=== PATIENT | male | born 1995 | race Caucasian/White ===

== ENCOUNTER 2016-08-28 03:49 | Emergency (ER) | payer BC ==
[2016-08-28] MEDS ORDERED: Ketorolac INJ* 30 MG/ML 1 ML VIAL IV ONE (04:07)
[2016-08-28] MEDS ORDERED: NS 0.9% 1000 ML* 1,000 ML IV ONE (04:07)
[2016-08-28] MEDS ORDERED: Ondansetron INJ* 2 MG/ML VIAL IV ONE (04:07)
[2016-08-28 04:24] LABS: Hematocrit 46 % (42-52); Hemoglobin 16.2 g/dl (14.0-18.0); Mean Corpuscular HGB Conc 35 g/dl (31-36); Mean Corpuscular Hemoglobin 32 pg (27-31); Mean Corpuscular Volume 89 fL (80-94); Mean Platelet Volume 8 um3 (7.4-10.4); Red Blood Count 5.14 10^6/ul (4.0-5.4); Red Cell Distribution Width 13 % (10.5-15)
[2016-08-28 04:35] LABS: Albumin 4.7 g/dL (3.2-5.2); C Reactive Protein 2.1 mg/L (< 5.00); Calcium 9.8 mg/dL (8.6-10.3); EGFR African American 99.4 (>60); EGFR Non-African American 77.3 (>60); Total Bilirubin 0.6 mg/dL (0.2-1.0); Total Protein 7.7 g/dL (6.4-8.9)
[2016-08-28 04:43] LABS: Potassium 3.4 mmol/L (3.5-5.0)
[2016-08-28 04:47] LABS: Urine Bacteria Absent (Absent); Urine Bilirubin Negative (Negative); Urine Glucose Negative (Negative); Urine Nitrite Negative (Negative)
[2016-08-28] MEDS ORDERED: oxyCODONE/Acetamin 5/325 MG* TAB PO ONE ×2 (05:12→05:43)
--- NOTE | 2016-08-28 05:17 | ED ---
Leonardo Talley Billy, scribed for Kofi Gifford MD on 08/28/16 at 0408 . Abdominal Pain/Male - HPI Summary HPI Summary: Patient is a 21 year-old male coming to [facility] presenting with suprapubic abdominal pain for the last several days, but suddenly worse since several hours ago. He states he has had pressure in the region for several days, and the pain has not moved. Pain severity 10/10. He reports urinary frequency and urgency, N/V/D. Denies any fever or hematuria. Denies any similar symptoms in the past. Denies history of kidney stones. - History of Current Complaint Chief Complaint: EDAbdPain Stated Complaint: FLANK PAIN Time Seen by Provider: 08/28/16 04:00 Hx Obtained From: Patient Onset/Duration: Gradual Onset, Lasting Days, Still Present, Worse Since - several hours Timing: Constant Severity Initially: Moderate Severity Currently: Moderate Pain Intensity: 10 Pain Scale Used: 0-10 Numeric Location: Suprapubic Radiates: No Aggravating Factor(s): Nothing Alleviating Factor(s): Nothing Associated Signs And Symptoms: Positive: Urinary Symptoms, Nausea, Vomiting, Diarrhea. Negative: Fever - Allergies/Home Medications Allergies/Adverse Reactions: Allergies Allergy/AdvReac Type Severity Reaction Status Date / Time No Known Allergies Allergy Verified 08/28/16 04:25 PMH/Surg Hx/FS Hx/Imm Hx Endocrine/Hematology History: Denies: Hx Diabetes Cardiovascular History: Denies: Hx Hypertension Infectious Disease History: No Infectious Disease History: Denies: Traveled Outside the [place] in Last 30 Days - Family History Family History: Father with frequent kidney stones. - Social History Alcohol Use: None Hx Substance Use: No Substance Use Type: Reports: None Hx Tobacco Use: No Smoking Status (MU): Never Smoked Tobacco Review of Systems Negative: Fever Positive: Abdominal Pain - suprapubic, Vomiting, Diarrhea, Nausea Positive: frequency, urgency. Negative: hematuria All Other Systems Reviewed And Are Negative: Yes Physical Exam Triage Information Reviewed: Yes Vital Signs On Initial Exam: Initial Vitals Temp Pulse Resp BP Pulse Ox 98.3 F 89 19 140/80 100 08/28/16 04:03 08/28/16 04:03 08/28/16 04:03 08/28/16 04:03 08/28/16 04:03 Vital Signs Reviewed: Yes Appearance: Positive: Well-Appearing, Pain Distress - moderate discomfort Skin: Positive: Warm Head/Face: Positive: Normal Head/Face Inspection Eyes: Positive: MINDY ENT: Positive: Hearing grossly normal Neck: Positive: Supple Respiratory/Lung Sounds: Positive: Clear to Auscultation, Breath Sounds Present Cardiovascular: Positive: RRR Abdomen Description: Positive: Nontender, No Organomegaly, Soft. Negative: CVA Tenderness (R), CVA Tenderness (L) Bowel Sounds: Positive: Present Musculoskeletal: Positive: Strength/ROM Intact Neurological: Positive: Sensory/Motor Intact, Alert, Oriented to Person Place, Time Psychiatric: Positive: Affect/Mood Appropriate Diagnostics - Vital Signs Vital Signs Temp Pulse Resp BP Pulse Ox 08/28/16 04:03 98.3 F 89 19 140/80 100 - Laboratory Lab Results: Lab Results 08/28/16 08/28/16 08/28/16 Range/Units 04:00 04:00 04:26 WBC 10.0 (3.5-10.8) 10^3/ul RBC 5.14 (4.0-5.4) 10^6/ul Hgb 16.2 (14.0-18.0) g/dl Hct 46 (42-52) % MCV 89 (80-94) fL MCH 32 H (27-31) pg MCHC 35 (31-36) g/dl RDW 13 (10.5-15) % Plt Count 274 (150-450) 10^3/ul MPV 8 (7.4-10.4) um3 Neut % (Auto) 52.2 (38-83) % Lymph % (Auto) 34.5 (25-47) % [place] % (Auto) 10.6 H (1-9) % Eos % (Auto) 2.0 (0-6) % Baso % (Auto) 0.7 (0-2) % Absolute Neuts (auto) 5.2 (1.5-7.7) 10^3/ul Absolute Lymphs (auto) 3.4 (1.0-4.8) 10^3/ul Absolute Monos (auto) 1.1 H (0-0.8) 10^3/ul Absolute Eos (auto) 0.2 (0-0.6) 10^3/ul Absolute Basos (auto) 0.1 (0-0.2) 10^3/ul Absolute Nucleated RBC 0.01 10^3/ul Nucleated RBC % 0.1 Sodium 134 (133-145) mmol/L Potassium 3.4 L (3.5-5.0) mmol/L Chloride 99 L (101-111) mmol/L Carbon Dioxide 22 (22-32) mmol/L Anion Gap 13 H (2-11) mmol/L BUN 14 (6-24) mg/dL Creatinine 1.17 (0.67-1.17) mg/dL Est GFR ( Amer) 99.4 (>60) Est GFR (Non-Af Amer) 77.3 (>60) BUN/Creatinine Ratio 12.0 (8-20) Glucose 98 (70-100) mg/dL Calcium 9.8 (8.6-10.3) mg/dL Total Bilirubin 0.60 (0.2-1.0) mg/dL AST 21 (13-39) U/L ALT 15 (7-52) U/L Alkaline Phosphatase 46 (34-104) U/L C-Reactive Protein 2.10 (< 5.00) mg/L Total Protein 7.7 (6.4-8.9) g/dL Albumin 4.7 (3.2-5.2) g/dL Globulin 3.0 (2-4) g/dL Albumin/Globulin Ratio 1.6 (1-3) Lipase 14 (11.0-82.0) U/L Urine Color Yellow Urine Appearance Cloudy Urine pH 6.0 (5-9) Ur Specific [place] 1.019 (1.010-1.030) Urine Protein Negative (Negative) Urine Ketones Negative (Negative) Urine Blood 3+ H (Negative) Urine Nitrate Negative (Negative) Urine Bilirubin Negative (Negative) Urine Urobilinogen Negative (Negative) Ur Leukocyte Esterase Negative (Negative) Urine WBC (Auto) Trace(0-5/hpf) (Absent) Urine RBC (Auto) 3+(>10/hpf) H (Absent) Ur Squamous Epith Cells Present H (Absent) Urine Bacteria Absent (Absent) Urine Glucose Negative (Negative) Result Diagrams: 08/28/16 04:00 08/28/16 04:00 Lab Statement: Any lab studies that have been ordered have been reviewed, and results considered in the medical decision making process. - CT abd/pel w CT Interpretation Completed By: Radiologist - Obstructing calculus in the distal right ureter. Re-Evaluation - Re-Evaluation First Eval Re-Evaluation Time: 05:09 Change: Improved Abdominal Pain Fem Course/Dx - Diagnoses Provider Diagnoses: Renal colic Discharge - Discharge Plan Condition: Stable Disposition: HOME Prescriptions: Tamsulosin CAP* [Flomax CAP*] 0.4 mg PO DAILY #7 cap Patient Education Materials: Renal Colic (ED) Referrals: [facility] [Outside] Renaldo Núñez MD [Medical Doctor] - Additional Instructions: FOLLOW UP WITH UROLOGY. The documentation as recorded by the Leonardo sequeira Billy accurately reflects the service I personally performed and the decisions made by me, Kofi Gifford MD.
[2016-08-28 05:24] VITALS: BP 124/76
[2016-08-28] MEDS ORDERED: Ondansetron ODT TAB* 4 MG ONE (05:30)
[2016-08-28] MEDS ORDERED: Ondansetron ODT TAB* 4 MG PO ONE (05:35)
--- NOTE | 2016-08-28 10:28 | RAD ---
CLINICAL HISTORY: 2 days of right lower quadrant pain COMPARISON: None TECHNIQUE: Noncontrast CT examination of the abdomen and pelvis from the lung bases through the initial tuberosities. FINDINGS: VISUALIZED LUNG BASES: The visualized lung bases are grossly clear. There is no pleural effusion. ABDOMEN AND PELVIS: Evaluation of the solid organs and vasculature is limited without intravenous contrast. The liver, spleen, pancreas and adrenal glands are grossly normal in appearance. The gallbladder is normal. In the left kidney there are 2 calcifications, the larger measuring 3 mm. There is no left-sided hydronephrosis or perinephric stranding. There is at least one punctate calcification in the lower pole the right kidney. There is mild to moderate right-sided hydroureter nephrosis. In the distal right ureter (coronal image 60 of 102) there is a 5 mm calcification. No calcifications are seen in the urinary bladder. The small and large bowel are not distended.The patient's normal appendix is identified in the right lower quadrant (coronal image 39). There is no gross retroperitoneal or mesenteric lymphadenopathy. The pelvic viscera is normal in appearance. The abdominal aorta and iliac arteries are normal in course and diameter. There are no sinister bone lesions. IMPRESSION: 5 mm renal calculus in the distal right ureter with ipsilateral mild to moderate hydroureter nephrosis.
== END 2016-08-28 05:23 | disposition home or self-care (01) ==
LOC: ED 03:49
DX: N23 Unspecified renal colic (principal); R11.2 Nausea with vomiting, unspecified; R19.7 Diarrhea, unspecified; R10.9 Unspecified abdominal pain
CPT/HCPCS: 36415; 74176; 80053; 81003; 81015; 83690; 85025; 86140; 96374; 96375; 99283; A9270-GY; J1885; J2405

== ENCOUNTER 2018-02-08 15:53 | Emergency (ER) | payer BC ==
[2018-02-08 16:15] VITALS: BP 131/69
--- NOTE | 2018-02-08 16:50 | UC ---
Dizzy HPI HPI Summary: Patient is a 23-year-old male with the acute onset of vertigo about 1:00 today. He denies any headache. He denies any nausea vomiting or diaphoresis. He denies any ringing or roaring in his ears. He has had a hard time ambulating. His symptoms are worse when he is supine and has his eyes closed. He has a constant rocking motion since the onset of symptoms. Has had no chest pain shortness of breath or palpitations. He does not feel like he's going to pass out. He has a history of migraines (atypical) - History Of Current Complaint Chief Complaint: UCDizziness Stated Complaint: DIZZINESS Time Seen by Provider: 02/08/18 16:21 Hx Obtained From: Patient Onset/Duration: Sudden Onset, Lasting Hours Timing: Constant Severity Initially: Moderate Severity Currently: Moderate Pain Intensity: 0 Pain Scale Used: 0-10 Numeric Character: Room Spinning Aggravating Factor(s): Position Change - worse whn supine and eyes closed Alleviating Factor(s): Nothing Associated Signs And Symptoms: Positive: Unsteady Gait. Negative: Nausea, Vomiting, Diaphoresis, Tinnitus, Chest Pain, SOB, Palpitations, Visual Changes, Decreased Oral Intake, Change In Medication, Change In Diet, OTC Medications - Allergies/Home Medications Allergies/Adverse Reactions: Allergies Allergy/AdvReac Type Severity Reaction Status Date / Time No Known Allergies Allergy Verified 02/08/18 16:15 PMH/Surg Hx/FS Hx/Imm Hx Previously Healthy: Yes GI/ History: Kidney Stones Neurological History: Migraine - Surgical History Surgical History: None Surgery Procedure, Year, and Place: denies - Family History Known Family History: Positive: Hypertension, Other - kidney stones Family History: Father with frequent kidney stones. - Social History Alcohol Use: Rare Substance Use Type: None Smoking Status (MU): Never Smoked Tobacco Review of Systems Constitutional: Negative Skin: Negative Eyes: Negative ENT: Negative Respiratory: Negative Cardiovascular: Negative Gastrointestinal: Negative Genitourinary: Negative Motor: Negative Neurovascular: Negative Musculoskeletal: Negative Neurological: Negative Psychological: Negative Is Patient Immunocompromised?: No All Other Systems Reviewed And Are Negative: Yes Physical Exam Triage Information Reviewed: Yes Appearance: Well-Appearing, No Pain Distress, Well-Nourished Vital Signs: Initial Vital Signs Temp 98.0 F 02/08/18 16:11 Pulse 50 02/08/18 16:11 Resp 18 02/08/18 16:11 BP 131/69 02/08/18 16:11 Pulse Ox 100 02/08/18 16:11 Vital Signs Reviewed: Yes Eyes: Positive: Conjunctiva Clear, Other: - EOMI/PERRL/ no nystagmus ENT: Positive: Hearing grossly normal, Pharynx normal, TMs normal, Uvula midline. Negative: Nasal congestion, Nasal drainage, Tonsillar exudate, Trismus , Muffled voice, Hoarse voice, Dental tenderness Neck: Positive: Supple, Nontender, No Lymphadenopathy, Other: - NO BRUITS Respiratory: Positive: Lungs clear, Normal breath sounds, No respiratory distress, No accessory muscle use Cardiovascular: Positive: RRR, No Murmur Musculoskeletal: Positive: ROM Intact, No Edema Neurological: Positive: Alert, Muscle Tone Normal, Other: - His body has a constant Swaying motion when he is seated or standing up. He has a slow wide- based gait. He is able to perform [id number] test without any ataxia. His cranial nerves II through XII are intact. His DTRs are symmetrical. Psychological Exam: Normal Skin Exam: Normal Diagnostics - Radiology No standard instances Xray Interpretation: No Acute Changes - CT brain Radiology Interpretation Completed By: Radiologist Re-Evaluation - Re-Evaluation First Eval Re-Evaluation Time: 18:02 Change: Improved - PT 95 % better at time of reevaluation. No rocking of body, no vertigo when standing Dizzy Course/Dx - Differential Dx/Diagnosis Provider Diagnoses: vertigo of uncertain cause Discharge - Sign-Out/Discharge Documenting (check all that apply): Patient Departure All imaging exams completed and their final reports reviewed: Yes - Discharge Plan Condition: Stable Disposition: HOME Prescriptions: Meclizine TAB* [Antivert TAB*] 12.5 - 25 mg PO TID PRN #20 tab PRN Reason: Dizziness Patient Education Materials: Vertigo (ED) Referrals: No Primary Care Phys,NOPCP [Medical Doctor] - Additional Instructions: I suggest you not drive today Recheck in AM if not completely better If unable to get in at [facility] we can recheck you here - Billing Disposition and Condition Condition: STABLE Disposition: Home
[2018-02-08] MEDS ORDERED: Meclizine TAB* 12.5 MG PO ONE (17:02)
--- NOTE | 2018-02-08 17:39 | RAD ---
INDICATION: Vertigo COMPARISON: None. TECHNIQUE: Contiguous axial sections of the brain were obtained from the skull base to the vertex without contrast. FINDINGS: The ventricles, cisterns and sulci are within normal limits. The sanders-white matter differentiation is adequately maintained and there is no sulcal effacement. No significant focal abnormality or mass effect is present. There is no evidence for intracranial hemorrhage. No significant focal osseous abnormality is present. The visualized portion of the paranasal sinuses appear clear. The mastoid air cells are well aerated bilaterally. IMPRESSION: Normal CT of the brain.
== END 2018-02-08 18:45 | disposition home or self-care (01) ==
LOC: UCEAST 15:53
DX: R42 Dizziness and giddiness (principal); R26.81 Unsteadiness on feet
CPT/HCPCS: 70450; 99212; A9270-GY; G0463

== ENCOUNTER 2018-12-07 18:10 | Emergency (ER) | payer BC ==
[2018-12-07 18:33] VITALS: BP 142/69
--- NOTE | 2018-12-07 20:17 | UC ---
Cardiac HPI - HPI Summary HPI Summary: 23 y/o male presents to the urgent care c/o pt states he began having lt side chest pain for the past 1 week. pt states he is worried that he is having paranoia. 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 pt helpd his dad carry heavy things last evening. - History of Current Complaint Chief Complaint: UCChestPain Stated Complaint: CHEST COMPLAINT Time Seen by Provider: 12/07/18 19:56 Hx Obtained From: Patient Pain Intensity: 1 - Allergy/Home Medications Allergies/Adverse Reactions: Allergies Allergy/AdvReac Type Severity Reaction Status Date / Time No Known Allergies Allergy Verified 12/07/18 18:33 PMH/Surg Hx/FS Hx/Imm Hx - Surgical History Surgical History: None Surgery Procedure, Year, and Place: denies - Family History Known Family History: Positive: Hypertension, Other - kidney stones Negative: Respiratory Disease Family History: Father with frequent kidney stones. - Social History Alcohol Use: Rare Substance Use Type: None Smoking Status (MU): Never Smoked Tobacco Physical Exam Vital Signs: Initial Vital Signs Temp 98.6 F 12/07/18 18:28 Pulse 71 12/07/18 18:28 Resp 18 12/07/18 18:28 BP 142/69 12/07/18 18:28 Pulse Ox 100 12/07/18 18:28 - Assessment/Plan Course Of Treatment: Pt with costochondritis on examination. EKG ordered:NSR, HR 66 bpm, no ST elevations or depressions. Pt Rx Ibuprofen PO to alleviate symptoms. Advised to flu with PCP if not improvement of symptoms. However if she developed SOB and severe chest pain to go immediately to the ER for further management. Pt explained D/C instructions. Pt understood and agreed with plan of care. Left the clinic A&OX3 and hemodynamically stable - Differential Diagnoses - Chest Pain Differential Diagnosis/HQI/PQRI: Acute MT, Chest Wall, GI Disease - Clinical Impression Provider Diagnosis: Acute costochondritis, Elevated BP without diagnosis of hypertension Discharge - Sign-Out/Discharge Documenting (check all that apply): Patient Departure - d/c home All imaging exams completed and their final reports reviewed: No Studies - Discharge Plan Condition: Stable Disposition: HOME Prescriptions: Ibuprofen TAB* [Motrin TAB* 800 MG] 800 mg PO Q6H PRN #30 tab PRN Reason: Pain Patient Education Materials: Costochondritis (ED), Low-Sodium Diet (ED) Referrals: Little Irvin NP [Primary Care Provider] - 3 Days Additional Instructions: 1-Please take ibuprofen PO q6-8hrs prn as instructed after meals to alleviate pain . Increase fluid intake, eat well, rest and avoid strenuous exercise 2- If chest pain becomes constant and severe radiating to the left arm w/ N/V or sweats, please fo immediately to the ER for further management 3- Please f/u with your PCP in 3 days if symptoms are not improving for further evaluation and treatment. 4- Your BP is elevated today. please decrease salt in your diet, monitor BP and if it continues to be elevated please f/u with your PCP for further management. - Billing Disposition and Condition Condition: STABLE Disposition: Home
== END 2018-12-07 20:47 | disposition home or self-care (01) ==
LOC: UCEAST 18:10
DX: M94.0 Chondrocostal junction syndrome [Tietze] (principal); R03.0 Elevated blood-pressure reading, without diagnosis of hypertension
CPT/HCPCS: 99212; G0463

== ENCOUNTER 2019-07-08 20:03 | Emergency (ER) | payer BC ==
[2019-07-08 20:13] VITALS: BP 107/74
--- NOTE | 2019-07-08 20:43 | UC ---
Cardiac HPI - HPI Summary HPI Summary: 24 yo with sharp chest pain in the left upper chest with onset acutely when he bent forward to warp picker a mail bag from a step. This has largely subsidedf. Pain was sharp and severe and has largely subsided without analgesics. He has no risk factors: never smoked, negative FH, no hx of htn. - History of Current Complaint Chief Complaint: UCChestPain Stated Complaint: CHEST COMPLAINT Time Seen by Provider: 07/08/19 20:16 Hx Obtained From: Patient Onset/Duration: Sudden Onset, Lasting Minutes Timing: Constant Pain Intensity: 2 Chest Pain Location: Discrete at: - left mid sternal border Character: Sharp/Stabbing Aggravating Factor(s): Exertion Alleviating Factor(s): Rest Associated Signs & Symptoms: Positive: Chest Pain. Negative: Weakness, Dizziness, Cough - Risk Factors Pulmonary Embolism Risk Factors: Negative Cardiac Risk Factors: Negative Atrial Fibrillation: Negative TAD Risk Factors: Negative - Allergy/Home Medications Allergies/Adverse Reactions: Allergies Allergy/AdvReac Type Severity Reaction Status Date / Time No Known Allergies Allergy Verified 07/08/19 20:13 Home Medications: Home Medications Citalopram TAB* [CeleXA TAB*] 10 mg PO DAILY 07/08/19 [History Confirmed ] Omeprazole 20 mg PO DAILY 07/08/19 [History Confirmed 07/08/19] PMH/Surg Hx/FS Hx/Imm Hx Previously Healthy: Yes Psychological History: Anxiety - hx of anxiety and somatization. - Surgical History Surgical History: None Surgery Procedure, Year, and Place: denies - Family History Known Family History: Positive: Cardiac Disease, Hypertension, Other - kidney stones Negative: Respiratory Disease Family History: Father with frequent kidney stones. - Social History Occupation: Employed Full-time Lives: With Family Alcohol Use: Occasionally Substance Use Type: None Smoking Status (MU): Never Smoked Tobacco Review of Systems All Other Systems Reviewed And Are Negative: Yes Constitutional: Positive: Negative Skin: Positive: Negative Eyes: Positive: Negative ENT: Positive: Negative Respiratory: Positive: Negative. Negative: Shortness Of Breath, Cough Cardiovascular: Positive: Chest Pain, Other - remote hx of murmur. Negative: Palpitations Gastrointestinal: Positive: Negative Genitourinary: Positive: Negative Motor: Positive: Negative Neurovascular: Positive: Negative Musculoskeletal: Positive: Negative Neurological: Positive: Negative Psychological: Positive: Negative Is Patient Immunocompromised?: No Physical Exam Triage Information Reviewed: Yes Appearance: Well-Appearing, No Pain Distress Vital Signs: Initial Vital Signs Temp 98 F 07/08/19 20:09 Pulse 55 07/08/19 20:09 Resp 16 07/08/19 20:09 BP 107/74 07/08/19 20:09 Pulse Ox 100 07/08/19 20:09 Eyes: Positive: Conjunctiva Clear ENT Exam: Normal ENT: Positive: Normal ENT inspection, Pharynx normal Neck: Positive: Supple, Nontender, No Lymphadenopathy Respiratory: Positive: Lungs clear, Normal breath sounds, No respiratory distress Cardiovascular: Positive: RRR, No Murmur Abdomen Description: Positive: Nontender, No Organomegaly, Soft Musculoskeletal Exam: Normal, Other - tenderness at origin of pectoral muscle along the left sternal border. Musculoskeletal: Positive: Strength Intact, ROM Intact Neurological Exam: Normal Psychological Exam: Normal Skin Exam: Normal Diagnostics - EKG Cardiac Rate: Bradycardia Cardiac Rhythm: Sinus: Normal Ectopy: None ST Segment: Normal - Assessment/Plan Course Of Treatment: reassured normal EKG and presentation is not typical of heart disease. If he thinks he has a wcb injury, will need an additional encounter. - Differential Diagnoses - Chest Pain Differential Diagnosis/HQI/PQRI: Chest Wall - Clinical Impression Provider Diagnosis: Chest wall muscle strain Discharge ED - Sign-Out/Discharge Documenting (check all that apply): Patient Departure All imaging exams completed and their final reports reviewed: No Studies - Discharge Plan Condition: Stable Disposition: HOME Patient Education Materials: Chest Wall Pain (ED) Referrals: Little Irvin NP [Primary Care Provider] - Additional Instructions: Use ibuprofen as needed for control of pain, taking 600mg every 6 hours as needed. Should you decide that this is a work injury which is causing persistent pain, you will need to file a claim with your employer and a separate assessment will need to be done. - Billing Disposition and Condition Condition: STABLE Disposition: Home
== END 2019-07-08 21:20 | disposition home or self-care (01) ==
LOC: UCEAST 20:03
DX: S29.011A Strain of muscle and tendon of front wall of thorax, initial encounter (principal); F41.9 Anxiety disorder, unspecified; X50.9XXA Other and unspecified overexertion or strenuous movements or postures, initial encounter; Y92.9 Unspecified place or not applicable
CPT/HCPCS: 99211; G0463

== ENCOUNTER 2019-09-23 18:23 | Emergency (ER) | payer BC ==
[2019-09-23 18:36] VITALS: BP 121/72
--- NOTE | 2019-09-23 19:10 | UC ---
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 Pain left ant chest. Did not seem to wax and wane, although possibly worse leaning forward. No sob / palpitations. Denies GI issues. No rash. No recent illness. Reports upper GI investigation recently nad. No uri / sore throat. Has had pain like this in the past, first episode in December 2018, and again in Jul 2019. Did see a rope walker in January 2019, and reports he was told heart ok, and to f/u as needed. Is very active, requiring need to walk and lift packages at work. Reports that he has anxiety, not sure to what extent anxiety is related - History of Current Complaint Chief Complaint: UCChestPain Stated Complaint: CHEST PAIN Time Seen by Provider: 09/23/19 18:41 Hx Obtained From: Patient Pain Intensity: 1 - Allergy/Home Medications Allergies/Adverse Reactions: Allergies Allergy/AdvReac Type Severity Reaction Status Date / Time No Known Allergies Allergy Verified 09/23/19 18:36 Home Medications: Home Medications Citalopram TAB* [CeleXA TAB*] 10 mg PO DAILY 07/08/19 [History Confirmed ] Omeprazole 20 mg PO DAILY 07/08/19 [History Confirmed 09/23/19] PMH/Surg Hx/FS Hx/Imm Hx Previously Healthy: Yes - see hpi Psychological History: Anxiety - Surgical History Surgical History: None Surgery Procedure, Year, and Place: denies - Family History Known Family History: Positive: Cardiac Disease, Hypertension, Other - kidney stones Negative: Respiratory Disease Family History: Father with frequent kidney stones. - Social History Alcohol Use: None Substance Use Type: None Smoking Status (MU): Never Smoked Tobacco Review of Systems All Other Systems Reviewed And Are Negative: Yes Constitutional: Positive: Negative Skin: Positive: Negative Eyes: Positive: Negative ENT: Positive: Negative Respiratory: Positive: Other - see hpi Cardiovascular: Positive: Other - see hpi Gastrointestinal: Positive: Other - see hpi Motor: Positive: Other - see hpi Neurovascular: Positive: Negative Musculoskeletal: Positive: Other: - see hpi Neurological/Mental Status: Positive: Negative Psychological: Positive: Other - see hpi Is Patient Immunocompromised?: No Physical Exam Triage Information Reviewed: Yes Appearance: Well-Appearing - sitting up on stretcher, conversing easily, in full sentences, Well-Nourished Vital Signs: Initial Vital Signs Temp 98.3 F 09/23/19 18:33 Pulse 80 09/23/19 18:33 Resp 16 09/23/19 18:33 BP 121/72 09/23/19 18:33 Pulse Ox 99 09/23/19 18:33 Vital Signs Reviewed: Yes Eye Exam: Normal ENT Exam: Normal ENT: Positive: Normal ENT inspection, Hearing grossly normal, Pharynx normal, TM dull Neck exam: Normal Neck: Positive: Supple, Nontender Respiratory: Positive: Chest non-tender, Lungs clear, Normal breath sounds, No respiratory distress, No accessory muscle use Cardiovascular Exam: Normal Cardiovascular: Positive: RRR, No Murmur, Pulses Normal, Brisk Capillary Refill Abdominal Exam: Normal Abdomen Description: Positive: Nontender Musculoskeletal Exam: Normal - gait steady moves x 4 ext's Musculoskeletal: Positive: Strength Intact Neurological Exam: Normal - grossly nonfocal Psychological Exam: Normal - nad Skin Exam: Normal - nondiaphoretic no visible or reported rash Course/Dx - Course Course Of Treatment: EKG - NSR at 61 bpm pr 161 Qtc 399 C/w most recent ekg in [facility] 07/08/2019 No pain or sx at time of phys exam. Nevertheless, recommend ED evaluation. Mr. Webster carefully considered this, but politely but firmly declines. Offered CXR here, which he also declines. He will go home and see how he feels, and if discomfort returns or if he changes his mind, will go to the ED. ASa considered, this too declines. HE will f/u with pcp and rope walker. Aware that by not going to the ED, he risks pain, disability, . However, seems content the feels ok. Mr. Webster was given the opportunity to ask several questions, to which I answered to the best of my ability. - Diagnoses Provider Diagnosis: Chest pain Discharge ED - Sign-Out/Discharge Documenting (check all that apply): Patient Departure All imaging exams completed and their final reports reviewed: No Studies - Discharge Plan Condition: Stable Disposition: HOME-RECOMMEND TO ED Patient Education Materials: Chest Pain (ED) Referrals: Little Irvin NP [Primary Care Provider] - Additional Instructions: Please follow up with your primary care physician AND your rope walker. Call tomorrow for appointment this week. Recommend that you go to the Emergency Department for further evaluation and treatment. Call [phone] if worse or new problems, or if your chest pain returns. - Billing Disposition and Condition Condition: STABLE Disposition: Home-Recommend to ED
== END 2019-09-23 19:25 | disposition home health service (06) ==
LOC: UCEAST 18:23
DX: R07.89 Other chest pain (principal)
CPT/HCPCS: 99212; G0463